=== PATIENT | female | born 1995 | race American Indian/Alaskan Native ===

== ENCOUNTER 2017-07-22 10:43 | Inpatient (IN) | payer BC, OTHER ==
--- NOTE | 2017-07-22 11:43 | OBHP ---
Datetime: 07/22/2017 11:08 IP Adm Impression: Term, intrauterine IP Admit Plan: Admit to unit Admit Comment, IP Provider: 21 y/o @ 37 wks GA AMINA reports vaginal spotting since y , now heavier, wiht blood clots with irregulra cramping, increasign itnesnty and freqncy. pt rpeorts bloody dischrge nad reports normal movments. Pt denie any lightheadness, dizzyness, CP, SOB. Pt reports had US on , had a little leaking but increased this morning. Ante: denies OB: etop x 1, x 1 uncomplicated [employer] REPRESENTATIVE: denie hx of fibroids, ovairn cyst, hx chylamdia PMH: anemia, hernia PSH: DxC FHX: non contributory SHX: negatieve etoh/tobaco/drug MEDS: pnV< IRN Bedside US BPP 6/8 cephalic, anterior placenta ANALY 4.7cm A/P @ 37 wks with VB and oligohydramnios -pt advised on IOL, R/b/a/i d/w patient -admit to L+D -NPO, IVF -Admission labs -cont toco and efm -cervidil -pain managment prn -gbs prophylaxis Pelvic Type - PN: Adequate Extremities - PN: Normal Abdomen - PN: Normal Back - PN: Normal Breast - PN: Normal Lungs - PN: Normal Heart - PN: Normal Thyroid - PN: Normal Neurologic - PN: Normal HEENT - PN: Normal General - PN: Normal Weight - Estimated: 3200 Presentation-Admit: Vertex FHR - Baseline A Provider: 135 Amniotic Fluid Color, Provider: Bloody Membranes, Provider: Intact Contraction Comments Provider: q 6 min Comments, ACOG Physical Exam: VE small amout of bloody ucosid discharge Gestation - Est Wks by US: 37.0 IP Hx Assessment: The History has been Reviewed and is Current EGA AdmitDate IP: 37.0 IP Chief Complaint: Vaginal bleeding NICHD Variability Prov Fetus A: Moderate 6-25bpm FHR Category Provider Fetus A: Category I NICHD Decel Fetus A IP Provider: None Dilatation, Provider: 1 Effacement, Provider: 30 Station, Provider: -3 Genitourinary Exam: Normal DTRs - PN: Normal
[2017-07-22] MEDS ORDERED: Penicillin G 5 Million Unit Vial IVPB ONE ×2 (11:45→11:54)
[2017-07-22] MEDS ORDERED: Lactated Ringer's 1,000 ML IV SCH (11:45)
[2017-07-22 12:39] LABS: BASO # 0.1 K/uL (0.0-0.2); BASO % 0.6 % (0.0-2.0); EOS # 0.1 K/uL (0.0-0.7); EOS % 1.2 % (0.0-4.0); LYMPH # 2.7 K/uL (1.0-4.3); LYMPH % 29.5 % (20.0-40.0); MEAN CELL VOLUME 86.1 fL (81.0-99.0); MEAN CORPUSCULAR HEMOGLOBIN 28.8 pg (27.0-31.0); MEAN CORPUSCULAR HGB CONC 33.4 g/dL (33.0-37.0); MEAN PLATELET VOLUME 8.6 fL (7.2-11.7); MONO # 0.9 K/uL (0.0-0.8); MONO % 9.7 % (0.0-10.0); NRBC % 0.2 % (0.0-2.0); RED CELL DISTRIBUTION WIDTH 13.6 % (11.5-14.5); WHITE BLOOD COUNT 9.1 K/uL (4.8-10.8)
[2017-07-22 12:47] LABS: RBC URINE 6 /hpf (0-3); URINE BILIRUBIN NEGATIVE (NEGATIVE); URINE BLOOD 1+ (NEGATIVE); URINE COLOR Yellow (YELLOW); URINE GLUCOSE (UA) NORMAL (Normal); URINE KETONE NEGATIVE (NEGATIVE); URINE LEUKOCYTE ESTERASE TRACE Leu/uL (Negative); URINE PROTEIN NEGATIVE (NEGATIVE); URINE UROBILINOGEN NORMAL mg/dL (0.2-1.0); WBC URINE 1 /hpf (0-5)
[2017-07-22 12:50] LABS: ALKALINE PHOSPHATASE 116 U/L (38-126); ALT/SGPT 23 U/L (9-52); AST/SGOT 23 U/L (14-36); BILIRUBIN,TOTAL 0.4 mg/dL (0.2-1.3); BLOOD UREA NITROGEN 7 mg/dL (7-17); CALCIUM 9.1 mg/dl (8.6-10.4); CARBON DIOXIDE 21 mmol/L (22-30); CHLORIDE 104 mmol/L (98-107); GFR AFRICAN-AMERICAN > 60; GLUCOSE,RANDOM 92 mg/dL (65-105); POTASSIUM 3.7 mmol/L (3.6-5.2); SODIUM 136 mmol/L (132-148); TOTAL PROTEIN 6.3 g/dL (6.3-8.3)
--- NOTE | 2017-07-22 14:52 | OBPN ---
Datetime: 07/22/2017 14:49 IP Progress Impression: Normal progression of labor IP Progress Plan: Continue present management Membranes, Provider: Intact Contraction Comments Provider: q 2 min FHR - Baseline A Provider: 150 Gestation - Est Wks by US: 37.0 Presentation-Admit: Vertex IP Progress Note Comment: pt seen and examined c/o pressure. pt reports normal fetla movmeents VSS EFM: Cat I IRVIN: q 1-2 min tachysystole A/p @ 37 wks with viagnla bleeding, IOL olighoydranion -cervidl removed -cont current mangant -pian managnet prn Vital Signs Provider: Reviewed; Within Normal Limits NICHD Variability Prov Fetus A: Moderate 6-25bpm Dilatation, Provider: 2 Effacement, Provider: 50 Station, Provider: -3 NICHD Decel Fetus A IP Provider: None Datetime: 07/22/2017 11:08 Amniotic Fluid Color, Provider: Bloody Weight - Estimated: 3200 FHR Category Provider Fetus A: Category I
--- NOTE | 2017-07-22 17:10 | OBPN ---
Datetime: 07/22/2017 17:07 IP Progress Impression: Normal progression of labor IP Procedures: Artificial ROM IP Progress Plan: Continue present management Membranes, Provider: Ruptured Amniotic Fluid Color, Provider: Clear Contraction Comments Provider: q 1-2 min FHR - Baseline A Provider: 130 Gestation - Est Wks by US: 37.0 Presentation-Admit: Vertex IP Progress Note Comment: pt seen and examiend c/o pressure s/p epidural. pt repors nromal fetla mov ments VSS EFM: Cat I TOCP q 1-2 min VE: 4/60/-2 AROM clear, scant fluid A/P @ 37 wks GA IOL for oligohydramnion is active labor -s/p pediural -cont toco adn efm -cont current managmnet Vital Signs Provider: Reviewed; Within Normal Limits NICHD Variability Prov Fetus A: Moderate 6-25bpm Dilatation, Provider: 4 Effacement, Provider: 60 Station, Provider: -2 NICHD Decel Fetus A IP Provider: None
[2017-07-22] MEDS ORDERED: Bupivacaine HCl 0.25% PF (10 ml) Inj ONE (17:20)
--- NOTE | 2017-07-22 19:36 | OBPN ---
Datetime: 07/22/2017 19:33 IP Progress Impression: Normal progression of labor IP Progress Plan: Continue present management Membranes, Provider: Ruptured FHR - Baseline A Provider: 120 Gestation - Est Wks by US: 37.0 IP Progress Note Comment: pt seen and examiend c/o prssure s/p epdiural VE ;-2 vtx ROM A/P @ 37+ wks in active labor -cont current managment Vital Signs Provider: Reviewed; Within Normal Limits NICHD Variability Prov Fetus A: Moderate 6-25bpm Dilatation, Provider: 6 Effacement, Provider: 70 Station, Provider: -2
[2017-07-22] MEDS ORDERED: Oxytocin 30 UNIT 30 UNITS/500 ML BAG IV SCH ×2 (19:45→21:00)
[2017-07-22] MEDS ORDERED: Oxycodone/Acetaminophen 5/325 mg Tab PO PRN ×2 (20:46)
[2017-07-22] MEDS ORDERED: Benzocaine/Menthol 20%-0.5% Topical Spray (60 ml) TOP PRN (20:46)
--- NOTE | 2017-07-22 20:56 | OBDS ---
DELIVERY PERSONNEL Nurse Academic Physician Certified: N/A Delivery Doctor: Vargas Briseno MD Scrub Nurse: N/A Filter Press Pumper: Amira Jackson RN Anesthesiologist: Vargas Mendez MD De Alcholizer: SAME MATERNAL INFORMATION Delivery Anesthesia: Epidural Medications in Delivery: PITOCIN 20 , METHERGINE 1 AMP AT 2040 Estimated Blood Loss (ml): 400 Placenta Cultured: No Maternal Complications: None Provider Comments: pt was fully dilated and pushing. atrumatic, spontanous deliveyr of head in [place] p ositon, no nuchal cord noted. atrumat,c spontnaous delivyer of anterior followed by posteiro shoulder followed by deliveyr of body . both oral and nsal passage of baby bulb suctioned. umbical cord clamp ed and cut. Cord blood and cord gases collected adn sent x 2. Spontaneous deliveyr of intact placenta with membrnes. fundus firm. intact perineum. good hemostasis, no ocmplications. live female infant apgars 9,9 weight of 5lb 13 ounces ebl 400ml LABOR SUMMARY EDC: 08/12/2017 00:00 No. Babies in Womb: 1 Attempted: No Labor Anesthesia: Epidural LABOR INFORMATION Onset of Labor: 07/22/2017 09:00 Complete Dilatation: 07/22/2017 20:24 Cervical Ripening Agents: Cervidil Oxytocin: N/A Group B Beta Strep: Done, Result Unknown MEMBRANES Membranes Rupture Method: Artificial Amniotic Fluid Color: Clear Amniotic Fluid Amount: Small Amniotic Fluid Odor: Normal STAGES OF LABOR Stage 1 hrs: 11 Stage 1 min: 24 Stage 2 hrs: 0 Stage 2 min: 7 VAGINAL DELIVERY Episiotomy: None Laceration Extension: N/A Laceration Type: None Other Laceration: N/A Laceration Repair: N/A Laceration Repair Note: intact perineum Initial Vag Sponge Count: 1 LAP, 10 X-RAYS Final Vag Sponge Count: 1 LAP,10 X-RAYS Initial Vag Sharps Count: 0 Final Vag Sharps Count: 0 Count Comment: count correct yes BABY A INFORMATION Delivery Date/Time: 07/22/2017 20:31 Method of Delivery: Vaginal Born in Route : No : N/A Forceps: N/A Vacuum Extraction: N/A Shoulder Dystocia : No SHOULDER DYSTOCIA BABY A Delivery Date/Time: 07/22/2017 20:31 PRESENTATION/POSITION BABY A Presentation: Cephalic Cephalic Presentation: Vertex Breech Presentation: N/A SCORES BABY A Heart Rate 1 min: >100 bpm Resp Effort 1 min: Good Cry Reflex Irritability 1 min: Cough or Sneeze or Pulls Away Muscle Tone 1 min: Active Motion Color 1 min: Completely [place] Resuscitation Effort 1 min: N/A SCORE 1 MIN: 10 Heart Rate 5 min: >100 bpm Resp Effort 5 min: Good Cry Reflex Irritability 5 min: Cough or Sneeze or Pulls Away Muscle Tone 5 min: Active Motion Color 5 min: Body [place], Extremities Blue Resuscitation Effort 5 min: N/A SCORE 5 MIN: 9 INFANT INFORMATION BABY A Gestational Age at Delivery: 37.0 Gestational Status: Term Outcome : Liveborn Infant Condition : Stable Infant Sex: Female IDENTIFICATION/MEDS BABY A ID Band Number: [id number] Sensor Number: [id number] WEIGHT/LENGTH BABY A Birthweight (gms): 2645 Weight (lb): 5 Weight (oz): 13 Infant Length Inches: 18.00 Infant Length cms: 45.7 ASSESSMENT BABY A Infant Complications: None Physical Findings at Delivery: Within Normal Limits Respirations: Appears Normal Clerk Of [address] Court/ALS Called : No Transferred To: Nursery
[2017-07-23 08:34] LABS: HEMATOCRIT 29.2 % (34.0-47.0); MEAN CELL VOLUME 84.6 fL (81.0-99.0); MEAN CORPUSCULAR HEMOGLOBIN 28.4 pg (27.0-31.0); MEAN CORPUSCULAR HGB CONC 33.5 g/dL (33.0-37.0); MEAN PLATELET VOLUME 8.3 fL (7.2-11.7); RED CELL DISTRIBUTION WIDTH 13.2 % (11.5-14.5)
[2017-07-23 08:42] LABS: WHITE BLOOD COUNT 16.1 K/uL (4.8-10.8)
[2017-07-23] MEDS: Multiple Vitamins Tab PO SCH (10:02)
--- NOTE | 2017-07-23 11:20 | OBPPN ---
Datetime: 07/23/2017 11:17 PP Pain Prov: Within normal limits PP Nausea Prov: Denies PP Flatus Prov: Yes PP BM Prov: No PP Breasts Prov: Normal PP Heart Prov: Normal PP Lungs Prov: Normal PP Abdomen/Uterus Prov: Normal PP Lochia Prov: Normal PP Vulva/Perineum Prov: Normal PP CVA Tenderness Prov: Normal PP Extremities Prov: Normal PP C/S Incision Prov: Normal PP Progress Prov: Normal PP Impression Prov: Normal progression PP Plan Prov: Continue present management PP Progress Note Prov: Pt seen and examined and reports pain is controlled with medication. Pt repor ts ambuating, voiding, passing flatus, no BM. Pt denies any fever, chills, nausea, vomiting, CP, SOB. lightheadness, dizzyness. Pt is breast and bottle feeding and denies any feelings of sadness or depr ession. VSS PE: GEN: NAD, AAO x 3 BREAST: NT, Non engorged b/l RES: CTAB/l CVS: RRR, +S1/S2 ABD: soft, NT/ND, +BS. No guarding, no reboudn tenderness, no rigidity FUNDUS: Firm, at level of umbiliucs VE: Minimal lochia, non fouls smelling EXT: no calf tenderness, negative gil's sign A/P s/p PPD #1 doing well -pain managment - diet as tolerated -encourage ambuation with assistance as needed/breast feeding -cont current managment -antipcae d/c in AM IP PP Procedures: None Vital Signs Provider PP: Reviewed; Within Normal Limits
[2017-07-23 16:23] VITALS: O2SAT 99
--- NOTE | 2017-07-24 07:24 | OBDCSUM ---
Datetime: 07/24/2017 07:23 Discharged to, Provider: Home Follow up at, Provider: Dr Briseno Disch Instr Activity: Normal activity Disch Instr Diet: Regular Discharge Instructions, Provider: Routine instructions given Discharge Diagnosis, Provider: Term Delivered Discharge Time: 07/24/2017 07:23 Follow up in weeks, Provider: 6 weeks Disch Referrals: None Contraception discussed, Prov: Yes Disch Activity Restrictions: No sexual activity; Nothing in vagina - [place], tampons, douche Discharge Comment, Provider: precautiosn given Contraception after Delivery: Not Planning to Use
--- NOTE | 2017-07-24 07:24 | OBPPN ---
Datetime: 07/24/2017 07:20 PP Pain Prov: Within normal limits PP Nausea Prov: Denies PP Flatus Prov: Yes PP BM Prov: Yes PP Breasts Prov: Normal PP Heart Prov: Normal PP Lungs Prov: Normal PP Abdomen/Uterus Prov: Normal PP Lochia Prov: Normal PP Vulva/Perineum Prov: Normal PP CVA Tenderness Prov: Normal PP Extremities Prov: Normal PP Impression Prov: Normal progression PP Plan Prov: Discharge PP Progress Note Prov: pt seen and examiend and denies any pain. pt denies an yvaignal bleeding, cp, sob. pt is breat feeding. VSS GEN: NAD, AAO x 3 RESP: Ctab/l CVS: RRR, +S1/S2 BREAST :Nt, non engoarged b/l ABD: soft, NT/ND, no guarding, no reboudn tendnerss, no rigity, +BS FUNDUS: firm, below level ofumbilucus VE: minimal lochia, non fouls smelling EX:T no calf tenderness, negative gil's sign A/P s/p PPD #2 doing well -f/u am cbc -d/c home -rto 6 weeks IP PP Procedures: None Vital Signs Provider PP: Reviewed; Within Normal Limits
[2017-07-24 08:13] LABS: BASO % 0.4 % (0.0-2.0); EOS # 0.1 K/uL (0.0-0.7); EOS % 1.1 % (0.0-4.0); HEMATOCRIT 27.5 % (34.0-47.0); LYMPH # 3.6 K/uL (1.0-4.3); LYMPH % 31.9 % (20.0-40.0); MEAN CELL VOLUME 85.6 fL (81.0-99.0); MEAN CORPUSCULAR HEMOGLOBIN 28.4 pg (27.0-31.0); MEAN CORPUSCULAR HGB CONC 33.2 g/dL (33.0-37.0); MEAN PLATELET VOLUME 8.8 fL (7.2-11.7); MONO # 1.3 K/uL (0.0-0.8); MONO % 11.5 % (0.0-10.0); RED CELL DISTRIBUTION WIDTH 13.2 % (11.5-14.5); WHITE BLOOD COUNT 11.3 K/uL (4.8-10.8)
[2017-07-24] MEDS: Multiple Vitamins Tab PO SCH (09:05)
[2017-07-24] MEDS ORDERED: Measles, Mumps, and Rubella 0.5 ML VIAL SC ONE (15:17)
[2017-07-24 21:48] VITALS: BP 92/52; PULSE 62; RESP 18; TEMP 97.9
== END 2017-07-24 16:40 | disposition home or self-care (01) | DRG 775 ==
LOC: C.EROB 10:43 → C.4D 11:27 → C.4M 22:45
PROVIDERS: ADMIT Obstetrics & Gynecology; ATTEND Obstetrics & Gynecology
PROC: 10E0XZZ Delivery of Products of Conception, External Approach (ICD-10-PCS; principal; 2017-07-22)
PROC: 3E0P7GC Introduction of Other Therapeutic Substance into Female Reproductive, Via Natural or Artificial Opening (ICD-10-PCS; 2017-07-22)
PROC: 10907ZC Drainage of Amniotic Fluid, Therapeutic from Products of Conception, Via Natural or Artificial Opening (ICD-10-PCS; 2017-07-22)
DX: O41.03X0 Oligohydramnios, third trimester, not applicable or unspecified (principal); Z37.0 Single live birth; Z3A.37 37 weeks gestation of pregnancy